=== PATIENT | male | born 1985 | race Two or more races ===

== ENCOUNTER 2023-02-28 19:07 | Emergency (ER) | payer MEDICAID, OTHER ==
[~2023-02-28] VITALS: Ht 170.2 cm; Wt 72.1 kg
[2023-02-28 19:30] VITALS: BP 128/118; PULSE 79; RESP 18; O2SAT 99
[2023-02-28] MEDS ORDERED: ACETAMINOPHEN 325 MG TAB PO ONE (21:45)
== END 2023-02-28 21:46 | disposition left against medical advice (07) ==
LOC: ER 19:07
DX: S20.212A Contusion of left front wall of thorax, initial encounter (principal); S09.8XXA Other specified injuries of head, initial encounter; M54.2 Cervicalgia; V49.9XXA Car occupant (driver) (passenger) injured in unspecified traffic accident, initial encounter; Y93.89 Activity, other specified; Y92.89 Other specified places as the place of occurrence of the external cause; Y99.8 Other external cause status
CPT/HCPCS: 70450; 72125